=== PATIENT | female | born 1985 | race Caucasian/White ===

== ENCOUNTER → 2019-01-28 | Outpatient (CLI) | payer OTHER | LOC: MRI 12:01 | DX: M79.4 Hypertrophy of (infrapatellar) fat pad (principal); M25.561 Pain in right knee; G89.29 Other chronic pain ==

== ENCOUNTER → 2020-05-04 | Outpatient (CLI) | payer OTHER ==
[2020-05-04 15:59] LABS: ABSOLUTE NEUTROPHILS 6.6 thou/uL (1.4-8.2); EOSINOPHILS 0.5 % (0.0-3.0); HEMATOCRIT 43.9 % (37.0-47.0); HEMOGLOBIN 15.3 gm/dL (12.0-15.0); MCH 36.8 pg (26.0-34.0); MCHC 34.8 g/dL (28.0-37.0); MCV 105.6 fL (80.0-100.0); MONOCYTES 6.4 % (1.0-8.0); PLATELET COUNT 211 thou/uL (150-400); POLYS 86.1 % (36.0-66.0); RBC 4.15 mil/uL (4.20-5.00); RDW 14.6 % (10.5-14.5); WBC 7.7 thou/uL (4.0-11.0)
[2020-05-04 16:33] LABS: ALBUMIN 4.7 g/dL (3.4-5.0); CALCIUM 9.5 mg/dL (8.5-10.1); CREATININE 0.8 mg/dL (0.6-1.0); POTASSIUM 3.9 mmol/L (3.5-5.1); TOTAL BILIRUBIN 1.7 mg/dL (0.2-1.0); TOTAL PROTEIN 8.9 g/dL (6.4-8.2)
[2020-05-04 16:39] LABS: FOLIC ACID 16.6 ng/mL (8.6-58.9)
== END ==
LOC: LAB 15:33
PROVIDERS: ATTEND Neuromusculoskeletal Medicine & OMM
DX: R16.0 Hepatomegaly, not elsewhere classified (principal)

== ENCOUNTER → 2020-05-10 | Outpatient (CLI) | payer OTHER | LOC: ULTRA 14:25 | PROVIDERS: ATTEND Neuromusculoskeletal Medicine & OMM | DX: R16.0 Hepatomegaly, not elsewhere classified (principal); K76.89 Other specified diseases of liver ==

== ENCOUNTER → 2020-05-16 | Outpatient (CLI) | payer OTHER ==
[2020-05-16 11:18] LABS: CREATININE 0.7 mg/dL (0.6-1.0)
== END ==
LOC: CAT 10:44
PROVIDERS: ATTEND Nurse Practitioner
DX: K76.89 Other specified diseases of liver (principal); D65 Disseminated intravascular coagulation [defibrination syndrome]

== ENCOUNTER → 2020-08-03 | Outpatient (CLI) | payer OTHER | LOC: LAB 12:22 | PROVIDERS: ATTEND Family Medicine | DX: Z20.828 Contact with and (suspected) exposure to other viral communicable diseases (principal) ==

== ENCOUNTER → 2020-12-26 | Outpatient (CLI) | payer OTHER ==
[2020-12-26 10:36] LABS: ABSOLUTE NEUTROPHILS 3.8 thou/uL (1.4-8.2); BASOPHILS 1.8 % (0.0-2.0); EOSINOPHILS 1.5 % (0.0-3.0); HEMATOCRIT 41.3 % (37.0-47.0); HEMOGLOBIN 14.2 gm/dL (12.0-15.0); MCH 38.7 pg (26.0-34.0); MCHC 34.4 g/dL (28.0-37.0); MCV 112.4 fL (80.0-100.0); MONOCYTES 11.9 % (1.0-8.0); PLATELET COUNT 177 thou/uL (150-400); POLYS 67.8 % (36.0-66.0); RBC 3.67 mil/uL (4.20-5.00); RDW 13.8 % (10.5-14.5); WBC 5.5 thou/uL (4.0-11.0)
[2020-12-26 10:58] LABS: ALBUMIN 4.1 g/dL (3.4-5.0); CALCIUM 8.8 mg/dL (8.5-10.1); CREATININE 0.7 mg/dL (0.6-1.0); POTASSIUM 4.2 mmol/L (3.5-5.1); TOTAL BILIRUBIN 1.4 mg/dL (0.2-1.0); TOTAL PROTEIN 8.4 g/dL (6.4-8.2)
[2020-12-26 11:27] LABS: ANISOCYTOSIS SLIGHT; MACROCYTES 1+; PLATELET ESTIMATE NORMAL
== END ==
LOC: LAB 10:06
PROVIDERS: ATTEND Nurse Practitioner
DX: N83.02 Follicular cyst of left ovary (principal); N92.6 Irregular menstruation, unspecified

== ENCOUNTER → 2021-05-09 | Outpatient (CLI) | payer OTHER | LOC: ER 08:19 | PROVIDERS: Hospitalist | DX: Z20.822 Contact with and (suspected) exposure to COVID-19 (principal) ==